=== PATIENT | female | born 1935 | race Caucasian/White ===

== ENCOUNTER → 2016-10-17 | Day surgery (SDC) | payer MEDICARE, OTHER ==
[~2016-10-17] VITALS: Ht 154.9 cm; Wt 85.8 kg
[~2016-10-17] MED LIST: ASPIRIN81 MG PO; AZITHROMYCIN500 MG PO; CEFDINIR300 MG PO; FLONASE NASAL S16 GM; IBUPROFEN200 MG PO; LEVOTHYROXINE50 MCG PO; MUCINEX600 MG PO; NEURONTIN600 MG PO; PRILOSEC20 MG PO; TOPROL XL25 MG PO; ZESTORETIC 20-1 EACH PO; ZOLOFT50 MG PO
[2016-10-17 09:30] LABS: HCT 42.8 % (37.0-47.0); HGB 14.4 g/dl (12.5-16.0); MCH 28.2 pg (25.0-31.0); MCHC 33.6 g/dL (32.0-36.0); MCV 83.8 fL (78.0-100.0); MPV 11.9 fL (6.0-9.5); RBC 5.11 M/uL (4.20-5.40); WBC 10.2 K/uL (4.0-10.5)
[2016-10-17 10:02] LABS: ALBUMIN 4.5 g/dL (3.4-4.8); BILIRUBIN - TOTAL 0.7 mg/dL (0.1-1.0); CREATININE 0.8 mg/dL (0.5-1.0); GLOBULIN (CALCULATION) 3.2 g/dL (2.2-4.2); POTASSIUM 4.1 mmol/L (3.5-5.1); TOTAL PROTEIN 7.7 g/dL (6.4-8.3)
== END | disposition home or self-care (01) ==
LOC: FAS 08:49
PROVIDERS: Surgery
DX: Z12.11 Encounter for screening for malignant neoplasm of colon (principal); K64.1 Second degree hemorrhoids; K64.4 Residual hemorrhoidal skin tags; K21.9 Gastro-esophageal reflux disease without esophagitis; I10 Essential (primary) hypertension; Z88.5 Allergy status to narcotic agent; Z79.899 Other long term (current) drug therapy
CPT/HCPCS: 36415; 80053; J1100; J2704